=== PATIENT | male | born 1975 | race Caucasian/White ===

== ENCOUNTER 2016-10-09 14:02 | Inpatient (IN) ==
[2016-10-09] MEDS ORDERED: SOLU-MEDROL 125 MG IVP STA (14:27)
[2016-10-09 15:02] LABS: BASOPHILS % (AUTO) 0.3 % (0.0-3.0); EOSINOPHILS % (AUTO) 0.1 % (0.0-7.0); HEMATOCRIT 45.6 % (42.0-52.0); HEMOGLOBIN 15.5 g/dl (14.0-18.0); IMMATURE GRANULOCYTE % (AUTO) 2.9 % (0.0-5.0); LYMPHOCYTES # (AUTO) 1.2 K/uL (0.60-3.4); LYMPHOCYTES % (AUTO) 10.9 (10.0-50.0); MEAN CORPUSCULAR HEMOGLOBIN 31.1 pg (27.0-31.0); MEAN CORPUSCULAR VOLUME 91.4 fl (80.0-94.0); MONOCYTES # (AUTO) 0.6 K/uL (0.4-2.0); MONOCYTES % (AUTO) 5.4 (0-10); NEUTROPHILS # (AUTO) 8.6 K/ul (2.0-6.9); NEUTROPHILS % (AUTO) 80.4; PLATELET COUNT 195 10^3/uL (140-440); RED BLOOD COUNT 4.99 10^6/ul (4.70-6.10)
[2016-10-09 15:06] VITALS: BMI 39.6
[2016-10-09] MEDS: ADVAIR 250-50 DISKUS IH SCH ×2 (15:11→20:54)
[2016-10-09 15:21] LABS: ALBUMIN 3.6 g/dL (3.4-5.0); ALBUMIN/GLOBULIN RATIO 1.09; ANION GAP 12.2; BILIRUBIN,TOTAL 3.1 mg/dL (0.00-1.20); BUN/CREATININE RATIO 21.5; CALCIUM 8.6 mg/dL (8.2-10.2); CREATININE 0.93 mg/dL (0.60-1.10); POTASSIUM 4.2 mmol/L (3.5-5.1); TOTAL PROTEIN 6.9 g/dL (6.4-8.2)
[2016-10-09] MEDS: ASTELIN 0.1% NAS SCH ×2 (15:23→20:54)
--- NOTE | 2016-10-09 15:48 | DI ---
Examination: Two radiographic images of the chest. Comparison: 09/25/2011. Reason for study: Shortness of air. FINDINGS: No pneumothorax, pleural effusion, or focal consolidation. The cardiac silhouette is not enlarged. The imaged osseous structures are unremarkable. Impression: No acute cardiopulmonary process.
[2016-10-09] MEDS: DUONEB NEB SCH ×2 (17:18→23:16)
[2016-10-09] MEDS: SOLU-MEDROL 125 MG IVP SCH (20:47)
[2016-10-09] MEDS: FLONASE NAS SCH (20:54)
[2016-10-09] MEDS ORDERED: PROTONIX IV ONE (20:59)
[2016-10-09] MEDS: PROTONIX IV 40 MG in SODIUM CHLORIDE 100 ML IV SCH (21:22)
[2016-10-10] MEDS: DUONEB NEB SCH ×4 (04:55→23:08)
[2016-10-10] MEDS: SOLU-MEDROL 125 MG IVP SCH (05:27)
[2016-10-10] MEDS: PROTONIX IV 40 MG in SODIUM CHLORIDE 100 ML IV SCH ×2 (08:26→20:20)
[2016-10-10] MEDS: ADVAIR 250-50 DISKUS IH SCH ×2 (08:26→20:20)
[2016-10-10] MEDS: ASTELIN 0.1% NAS SCH ×2 (08:26→20:20)
[2016-10-10] MEDS: FLONASE NAS SCH ×2 (08:26→20:20)
[2016-10-10] MEDS: SOLU-MEDROL 40 MG IVP SCH ×3 (11:51→20:20)
[2016-10-11] MEDS: DUONEB NEB SCH ×5 (05:00→21:57)
[2016-10-11] MEDS: SOLU-MEDROL 40 MG IVP SCH ×3 (05:47→20:47)
[2016-10-11] MEDS: ASTELIN 0.1% NAS SCH ×2 (08:54→20:44)
[2016-10-11] MEDS: ADVAIR 250-50 DISKUS IH SCH ×2 (08:54→20:44)
[2016-10-11] MEDS: PROTONIX IV 40 MG in SODIUM CHLORIDE 100 ML IV SCH ×2 (08:55→20:42)
[2016-10-11] MEDS: FLONASE NAS SCH ×2 (08:55→20:44)
[2016-10-11] MEDS ORDERED: LEVAQUIN 100 ML IV ONE (17:55)
[2016-10-11] MEDS ORDERED: LEVAQUIN 500 MG in PREMIX 100 ML D5W 1 BAG IV SCH (18:00)
[2016-10-11] MEDS ORDERED: SOLU-MEDROL 40 MG IVP SCH (18:00)
[2016-10-11] MEDS: MUCINEX PO SCH (20:45)
[2016-10-12] MEDS: DUONEB NEB SCH ×6 (01:37→21:14)
[2016-10-12] MEDS ORDERED: SOLU-MEDROL 40 MG ONE (05:06)
[2016-10-12] MEDS: SOLU-MEDROL 40 MG IVP SCH (05:12)
[2016-10-12] MEDS: ADVAIR 250-50 DISKUS IH SCH ×2 (08:36→21:36)
[2016-10-12] MEDS: ASTELIN 0.1% NAS SCH ×2 (08:36→21:36)
[2016-10-12] MEDS: FLONASE NAS SCH ×2 (08:37→21:36)
[2016-10-12] MEDS: PROTONIX IV 40 MG in SODIUM CHLORIDE 100 ML IV SCH ×2 (08:37→21:44)
[2016-10-12] MEDS: MUCINEX PO SCH ×2 (08:37→21:36)
[2016-10-12] MEDS: SOLU-MEDROL 125 MG IVP SCH ×2 (13:05→22:45)
[2016-10-12] MEDS ORDERED: SODIUM CHLORIDE 500 ML IV STA (18:12)
[2016-10-12] MEDS: SODIUM CHLORIDE 1,000 ML IV SCH (18:26)
[2016-10-12] MEDS ORDERED: LEVAQUIN 500 MG in PREMIX 100 ML D5W 1 BAG IV SCH (21:00)
[2016-10-13] MEDS: DUONEB NEB SCH ×6 (01:05→21:23)
[2016-10-13] MEDS ORDERED: SOLU-MEDROL 125 MG IVP SCH (06:09)
[2016-10-13 06:17] LABS: HEMOGLOBIN 14.3 g/dl (14.0-18.0); MEAN CORPUSCULAR HEMOGLOBIN 31.6 pg (27.0-31.0); MEAN CORPUSCULAR VOLUME 92.7 fl (80.0-94.0); PLATELET COUNT 185 10^3/uL (140-440); RED BLOOD COUNT 4.53 10^6/ul (4.70-6.10); WHITE BLOOD COUNT 16.51 K/ul (4.2-10.2)
[2016-10-13] MEDS ORDERED: SINGULAIR PO SCH (06:30)
[2016-10-13] MEDS ORDERED: SINGULAIR ONE (06:39)
[2016-10-13] MEDS: LOVENOX SUBCUT SCH ×2 (06:41→08:31)
[2016-10-13 06:43] LABS: ALBUMIN 3.1 g/dL (3.4-5.0); ALBUMIN/GLOBULIN RATIO 1.15; ANION GAP 11.9; BILIRUBIN,TOTAL 1.56 mg/dL (0.00-1.20); BUN/CREATININE RATIO 16.27; CALCIUM 8.2 mg/dL (8.2-10.2); CREATININE 0.86 mg/dL (0.60-1.10); POTASSIUM 3.9 mmol/L (3.5-5.1); TOTAL PROTEIN 5.8 g/dL (6.4-8.2)
[2016-10-13 07:09] LABS: ANISOCYTOSIS NOT PRESENT (NOT PRESENT)
[2016-10-13] MEDS: SOLU-MEDROL 125 MG IVP SCH (07:32)
[2016-10-13] MEDS: ROCEPHIN 1 GM in SODIUM CHLORIDE 100 ML IV SCH ×2 (08:29→08:32)
[2016-10-13] MEDS: MUCINEX PO SCH ×2 (08:29→20:03)
[2016-10-13] MEDS: ASTELIN 0.1% NAS SCH ×2 (08:30→20:04)
[2016-10-13] MEDS: FLONASE NAS SCH ×2 (08:30→20:04)
[2016-10-13] MEDS: ADVAIR 250-50 DISKUS IH SCH ×2 (08:30→20:04)
[2016-10-13] MEDS: ZITHROMAX 500 MG in SODIUM CHLORIDE 250 ML IV SCH ×2 (09:51→09:52)
[2016-10-13] MEDS: PROTONIX IV 40 MG in SODIUM CHLORIDE 100 ML IV SCH ×2 (11:58→20:03)
[2016-10-13] MEDS: SOLU-MEDROL 40 MG IVP SCH ×2 (12:56→21:23)
[2016-10-14] MEDS: DUONEB NEB SCH ×3 (01:04→10:10)
[2016-10-14] MEDS: SOLU-MEDROL 40 MG IVP SCH (05:09)
[2016-10-14] MEDS: SODIUM CHLORIDE 1,000 ML IV SCH (05:09)
[2016-10-14] MEDS: FLONASE NAS SCH (08:08)
[2016-10-14] MEDS: MUCINEX PO SCH (08:08)
[2016-10-14] MEDS: ASTELIN 0.1% NAS SCH (08:08)
[2016-10-14] MEDS: LOVENOX SUBCUT SCH (08:08)
[2016-10-14] MEDS: ADVAIR 250-50 DISKUS IH SCH (08:09)
[2016-10-14] MEDS: ROCEPHIN 1 GM in SODIUM CHLORIDE 100 ML IV SCH (08:09)
[2016-10-14] MEDS: PROTONIX IV 40 MG in SODIUM CHLORIDE 100 ML IV SCH (09:16)
[2016-10-14] MEDS: ZITHROMAX 500 MG in SODIUM CHLORIDE 250 ML IV SCH (09:17)
[2016-10-14 10:03] VITALS: BP 116/63; TEMP 97.7
[2016-10-14] MEDS ORDERED: SINGULAIR PO SCH (21:00)
--- NOTE | 2016-11-16 11:44 | HP ---
CHIEF COMPLAINT: " I can't breath and I'm wheezing." DISCUSSION: This is a 41 year old gentleman recently admitted for what was thought to be a bronchitis with bronchial spasm perhaps even to some degree of asthma. Seem to be season and was recently admitted to [facility] with steroids and bronchial dilators and did very well. Upon returning home within two days he started developing increasing wheezing and shortness of breath he can not even ambulate two steps with out becoming dyspneic. At this time we could not continue treating at home and he was admitted to the hospital at [place] for continued antibiotic, bronchial dilators and further evaluation of his shortness of breath. MEDICATIONS: Advair Prednisone Protonix Singular DUO NEBS Flonase Zithromax ALLERGIES: No known drug allergies PAST MEDICAL HISTORY: Bronchitis SURGICAL HISTORY: Unremarkable SOCIAL HISTORY: The patient is . No alcohol, tobacco or illicit drug use. FAMILY HISTORY: Review and thought not to be pertinent to discussion. REVIEW OF SYSTEMS: He has had chest pain only with cough, He has been very short of breath, expiratory wheezes, No abdominal pain. No headaches, visual changes, tinnitus, hemoptysis, blood in the stool, urinary symptoms or seizures. PHYSICAL EXAMINATION: V/S: Temperature 98.2, pulse 93, respiration 16 and blood pressure 132/83. HEENT: Pupils are round. NECK: Supple. CHEST: Reveals expiratory wheezing and bronchi CARDIOVASCULAR: Regular rate and rhythm. ABDOMEN: Soft, nontender. EXTREMITIES: Distal extremities without cyanosis or edema. ASSESSMENT: 1. Probably continued bronchitis with bronchial spasm, question component of asthma PLAN: 1. Admission 2. IV antibiotics, aggressive 3. Bronchial dilators 4. Sputum expectoration 5. Please see orders. MTDD
--- NOTE | 2016-11-16 11:49 | DS ---
PRINCIPAL DIAGNOSIS: 1. Bronchitis with bronchial spasm, question asthmatic component DISCUSSION: This is a 41 year old gentleman recently admitted for what was thought to be a bronchitis with bronchial spasm perhaps even to some degree of asthma. Seem to be season and was recently admitted to [facility] with steroids and bronchial dilators and did very well. Upon returning home within two days he started developing increasing wheezing and shortness of breath he can not even ambulate two steps with out becoming dyspneic. At this time we could not continue treating at home and he was admitted to the hospital at [place] for continued antibiotic, bronchial dilators and further evaluation of his shortness of breath. CLINICAL COURSE: The patient was placed on aggressive steroid therapy along with bronchial dilators. Physical therapy worked with him with percussion with produce sputum, this seemed to rapid improve him symptoms. At time of discharge his wheezing had resolved and his cough was better. At this point we felt he was stable for discharge. He was discharged home with medications per reconciliation. He will followup in the office in one week. Please see orders. MTDD
== END 2016-10-14 11:45 | disposition home or self-care (01) | DRG 203 ==
LOC: MEDSURG B 14:02
PROVIDERS: ADMIT Family Medicine; ATTEND Family Medicine
DX: J20.9 Acute bronchitis, unspecified (principal); R06.02 Shortness of breath; Z79.899 Other long term (current) drug therapy
CPT/HCPCS: 36415; 80053; 83880; 85007; 85025; 85379; 87081; 93005; 93010; 94640; 94667; 94668

== ENCOUNTER 2018-01-18 16:11 | Outpatient (CLI) ==
--- NOTE | 2018-01-18 17:13 | DI ---
EXAM: Three views of the left foot HISTORY: Left foot pain. COMPARISON: Right foot x-ray 12/28/2015 FINDINGS: There is no cortical irregularity or displaced fracture of the left foot. There is minimal narrowing and osteophyte formation of the IP joint of the great toe. There is no lytic or blastic l esion. The arch is maintained. Calcaneal spurs are present. Soft tissues are normal. IMPRESSION: 1. No acute abnormality or displaced fracture. 2. 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
== END 2018-01-18 16:12 | disposition home or self-care (01) ==
LOC: RAD 16:11
PROVIDERS: ATTEND Family Medicine
DX: M79.672 Pain in left foot (principal)